=== PATIENT | male | born 1975 | race Caucasian/White ===

== ENCOUNTER 2017-06-02 19:11 | Emergency (ER) | payer OTHER ==
[~2017-06-02] VITALS: Ht 177.8 cm; Wt 95.5 kg
[2017-06-02 19:13] VITALS: BP 148/83; TEMP 99.1
[2017-06-02] MEDS ORDERED: DITROPAN 5MG TAB5 MG PO (19:16)
[2017-06-02 19:58] LABS: BASO # 0.1 (0.0-0.2); BASO % 0.5 % (0.0-2.0); BILIRUBIN,TOTAL 1.3 mg/dL (0.0-1.0); CALCIUM 9.4 mg/dL (8.4-10.2); CREATININE, serum 0.88 mg/dL (0.66-1.25); EOS # 0.3 (0.0-0.7); EOS % 2.2 % (0-4.0); GRAN # 9.1 (1.4-6.5); GRAN % 76.1 % (42.2-75.2); HEMATOCRIT 43.7 % (42.0-52.0); HEMOGLOBIN 15.3 g/dl (13.5-18.0); LYMPH # 1.7 (1.2-3.4); LYMPH % 14.1 % (20.0-51.0); MEAN CELL VOLUME 87 fl (80.0-100.0); MEAN CORPUSCULAR HEMOGLOBIN 31 pg (27.0-31.0); MEAN CORPUSCULAR HGB CONC 35 g/dl (33.0-37.0); MEAN PLATELET VOLUME 10.1 fl (7.4-10.4); MONO # 0.8 (0.1-0.6); MONO % 6.8 % (1.7-9.3); PLATELET COUNT 230 K/mm3 (130-400); RED BLOOD COUNT 5.01 M/mm3 (4.20-5.60); REDCELL DISTRIBUTION WIDTH-CV 12.2 % (11.5-14.5); TOTAL PROTEIN 8.3 gm/dL (6.4-8.2)
[2017-06-02 20:52] VITALS: PULSE 67
== END 2017-06-02 20:52 | disposition home or self-care (01) ==
LOC: COL.ER 19:11
PROVIDERS: Physician Assistant
DX: B34.9 Viral infection, unspecified (principal); Z98.890 Other specified postprocedural states